=== PATIENT | female | born 1930 | race American Indian/Alaskan Native ===

== ENCOUNTER 2017-04-06 07:19 | Day surgery (SDC) | payer MEDICARE ==
[~2017-04-06 07:19] MED LIST: ANCEF/STERILE WATER 2 GM/20 ML 2 GM/20 ML SYRINGE IV NR; NACL 0.9% 1000 ML 1,000 ML IV SCH
[2017-04-06] MEDS ORDERED: NACL BACTERIOSTATIC INFILTRATI ONE (07:57)
[2017-04-06] MEDS ORDERED: MARCAINE 0.5% INFILTRATI ONE ×2 (08:11→09:51)
[2017-04-06] MEDS ORDERED: PROTAMINE SULFATE ONE (08:12)
[2017-04-06] MEDS ORDERED: RIFADIN ONE (08:12)
[2017-04-06] MEDS ORDERED: HEPARIN 10,000 UNITS/10 ML ONE (08:12)
[2017-04-06] MEDS ORDERED: NACL 0.9% 500 ML 500 ML ONE (08:12)
[2017-04-06] MEDS ORDERED: SUBLIMAZE ONE (08:17)
[2017-04-06] MEDS ORDERED: DIPRIVAN 10 MG/ML IV ONE (08:18)
[2017-04-06 08:24] LABS: Hematocrit 40.8 % (30.3-42.9); Hemoglobin 13.5 gm/dl (10.1-14.3); Mean Corpuscular HGB Conc 33 % (30-34); Mean Corpuscular Hemoglobin 29 pg (28-32); Mean Corpuscular Volume 89 fl (79-97); Platelet Count 224 K/mm3 (140-440); Red Cell Distribution Width 18.4 % (13.2-15.2); White Blood Count 7.1 K/mm3 (4.5-11.0)
[2017-04-06] MEDS ORDERED: XYLOCAINE MPF 2% ONE (08:24)
[2017-04-06] MEDS ORDERED: ROBINUL ONE (08:24)
[2017-04-06] MEDS ORDERED: PEPCID PO NR (08:27)
--- NOTE | 2017-04-06 08:31 | Anesthesia Consultation ---
Anesthesia Consult and Med Hx - Airway Anesthetic Teeth Evaluation: Good ROM Head & Neck: Adequate Mental/Hyoid Distance: Adequate Mallampati Class: Class II Intubation Access Assessment: Probably Good - Pulmonary Exam CTA: Yes - Cardiac Exam Cardiac Exam: RRR - Pre-Operative Health Status ASA Pre-Surgery Classification: ASA3 Proposed Anesthetic Plan: General - Cardiovascular System Hx Hypertension: Yes (took al BP meds this am) - Central Nervous System Hx Neuromuscular Disorder: Yes (arthritis and gout) Hx Psychiatric Problems: No - Endocrine Hx Renal Disease: Yes Hx End Stage Renal Disease: Yes (sx for dialysis access) - Other Systems Hx Cancer: No - Additional Comments Anesthesia Medical History Comments: no previous anesthesia problems
--- NOTE | 2017-04-06 08:34 | Anesthesia Day of Surgery ---
Anesthesia Day of Surgery - Day of Surgery Patient Examined: Yes Patient H&P Reviewed: Yes Patient is NPO: Yes
[2017-04-06] MEDS ORDERED: PERCOCET 5/325 PO PRN (08:42)
[2017-04-06] MEDS ORDERED: ZOFRAN IV PRN (08:42)
[2017-04-06 08:43] LABS: Calcium 9.3 mg/dL (8.4-10.2); Chloride 92.1 mmol/L (98-107); Potassium 5.4 mmol/L (3.6-5.0)
[2017-04-06 09:02] LABS: INR 0.94 (0.87-1.13)
[2017-04-06 09:50] LABS: Blastocytes % (Manual) 0 %
[2017-04-06 09:51] LABS: Anisocytosis 1+; Diff Status Complete; Ovalocytes Few; Platelet Estimate Consistent w Auto; Polychromasia Few
[2017-04-06] MEDS ORDERED: NACL 0.9% IR ONE (09:51)
[2017-04-06] MEDS ORDERED: HEPARIN 10,000 UNITS/10 ML 2,000 UNIT in NACL 0.9% 500 ML 500 ML IR ONE (09:51)
[2017-04-06] MEDS ORDERED: RIFADIN 600 MG in NACL 0.9% 50 ML IR ONE (09:53)
[2017-04-06] MEDS ORDERED: DECADRON ONE (10:00)
[2017-04-06] MEDS ORDERED: ZOFRAN ONE (10:01)
[2017-04-06] MEDS ORDERED: NEO SYNEPHRINE ONE (10:01)
[2017-04-06] MEDS ORDERED: NACL 0.9% 100 ML ONE (10:01)
--- NOTE | 2017-04-06 11:09 | Short Stay Summary ---
Short Stay Documentation Date of service: 04/06/17 Narrative H&P: See H&P - History H&P: obtained from office - Allergies and Medications Current Medications: Allergies No Known Allergies Allergy (Verified 04/06/17 08:49) Home Medications Medication Instructions Recorded Confirmed Last Taken Type Aspirin [Lo-Dose Aspirin EC] 81 mg PO DAILY 03/30/17 03/30/17 04/06/17 06:30 History Calcium Carbonate/Vitamin D3 1 each PO DAILY 03/30/17 03/30/17 04/06/17 06:30 History [Os-Bryan 500+D3 Caplet] Colchicine [Colcrys] 0.6 mg PO DAILY 03/30/17 04/06/17 04/05/17 History Furosemide [Lasix] 80 mg PO DAILY 03/30/17 04/06/17 04/05/17 History Hydralazine HCl 50 mg PO TID 03/30/17 03/30/17 04/06/17 06:30 History Multivitamin [Multiple Vitamins] 1 each PO DAILY 03/30/17 03/30/17 04/06/17 06: 30 History NIFEdipine [Afeditab Cr] 60 mg PO DAILY 03/30/17 03/30/17 04/06/17 06:30 History Om3/Dha/Epa/Cod Liver Oil/A/D3 1 each PO DAILY 03/30/17 03/30/17 04/06/17 06:30 History [Cod Liver Oil Softgel] Omeprazole 40 mg PO DAILY 03/30/17 03/30/17 04/06/17 06:30 History Sodium Bicarbonate 650 mg PO DAILY 03/30/17 03/30/17 04/06/17 06:30 History cloNIDine [Catapres] 0.2 mg PO DAILY 03/30/17 03/30/17 04/06/17 06:30 History Active Medications Famotidine (Pepcid) 20 mg PO PREOP NR Stop: 04/06/17 12:00 Last Admin: 04/06/17 08:52 Dose: 20 mg Hydromorphone HCl (Dilaudid) 0.25 mg IV Q10MIN PRN PRN Reason: Pain, Moderate (4-6) Stop: 04/06/17 18:00 Cefazolin Sodium (Ancef/Sterile Water 2 Gm/20 Ml) 2 gm in 20 mls @ 80 mls/hr IV PREOP NR PRN Reason: Protocol Stop: 04/06/17 23:59 Sodium Chloride (Nacl 0.9% 1000 Ml) 1,000 mls @ 42 mls/hr IV DIRECT CARMEN Last Admin: 04/06/17 08:05 Dose: 42 mls/hr Ondansetron HCl (Zofran) 4 mg IV ONCE PRN PRN Reason: Nausea And Vomiting Stop: 04/06/17 18:00 Oxycodone/Acetaminophen (Percocet 5/325) 1 tab PO ONCE PRN PRN Reason: Pain, Moderate (4-6) Stop: 04/06/17 18:00 - Brief post op/procedure progress note Date of procedure: 04/06/17 Pre-op diagnosis: ESRD Post-op diagnosis: same Procedure: Creation of Left Arm Axillary Artery to Axillary Vein AV Loop Graft with 4-7 Propaten Step Graft Anesthesia: GETA Surgeon: FRANCISCO POSADA Estimated blood loss: minimal Pathology: none Condition: stable - Disposition Condition at discharge: Good Disposition: DC-01 TO HOME OR SELFCARE Short Stay Discharge Plan Activity: other (the heavy lifting with left arm) Wound: open to air, other (okay to wash the wound with soap and water but do not soak in water) Follow up with: FRANCISCO PSOADA MD [Staff Physician] - 14 Days Prescriptions: HYDROcodone/APAP 7.5-325 [[place] 7.5/325] 1 each PO Q6HR PRN #40 tablet PRN Reason: Pain
--- NOTE | 2017-04-06 11:12 | Operative Report ---
Operative Report Operative Report: Date of Procedure: 04/06/2017 Pre-operative Diagnosis: End-Stage Renal Disease Post-operative Diagnosis: Same Procedure(s): 1. The Left Axillary Artery to Axillary Vein Arteriovenous Loop Graft with 4-7 Propaten Step Graft Surgeon: Duy Casillas M.D. Transit Specialist: None Anesthesia: Gen. endotracheal anesthesia EBL: Minimal Counts: Correct Complications: None Condition: Stable Findings: Successful creation of left arm AV graft with excellent thrill within the case. Specimen: None Indication: The patient is an 86-year-old female with a history of end-stage renal disease currently on hemodialysis through a right internal jugular permacath. She is in need of long-term access and was offered a left arm AV graft. She was given the risks, benefits, and alternative procedures and consented to procedure. Description of Procedure: The patient was brought to the operating room and laid in supine position. After general endotracheal anesthesia was achieved the left arm was prepped and draped in normal sterile fashion. A longitudinal incision was graded on the medial aspect of the arm and carried down to the axillary vein using sharp dissection. This was dissected out circumferentially and then my attention was turned to the axillary artery. The axillary artery was dissected circumferentially and controlled with 2 vessel loops. I then use a Sangita-Wick tunneler to create a tunnel and pulled the 4-7 Propaten Step Graft through the tunnel with the 4 mm portion of the graft on the medial aspect of the arm and the 7 mm portion anterolateral. A counterincision was created in the mid arm to assist with pulling the graft through the tunnel. I then put the vessel loops on tension to control flow in the axillary artery and created an arteriotomy using 11 blade and Adams scissors. I then created an end-to-side anastomosis using a 6-0 Prolene in running fashion. After completing the anastomosis and released the vessel loops allow flow into the graft which had excellent flow and then I reclamped the graft near the arterial anastomosis. I then cut the venous portion of the graft to length and beveled and then controlled the axillary vein with a Satinsky clamp. I created a anatomy using 11 blade Adams scissors and the greater end-to-side anastomosis using a 6-0 Prolene in running fashion. Prior to completing the anastomosis as well as the vein as well as the arterial inflow of the graft and then reclamped the graft vein and flushed venotomy with heparinized saline. I then completed the anastomosis and removed all clamps allow flow into the graft was an excellent thrill. Hemostasis was achieved with a combination of clot and direct pressure. Once hemostasis was achieved both issues were anesthetized with Marcaine and then closed in 2 layers using a 3-0 Vicryl in a running fashion the deep dermal layer and a 4-0 Monocryl in running fashion subcuticular and then dressed with Surgicel. The patient tolerated the procedure well. All sponge, needle, and instrument counts were correct. The patient was taken to recovery in stable condition.
[2017-04-06] MEDS ORDERED: LOPRESSOR IV ONE ×2 (11:39→11:49)
--- NOTE | 2017-04-06 12:15 | Post Anesthesia Evaluation ---
- Post Anesthesia Evaluation Patient Participated: Yes Airway Patent: Yes Stable Respiratory Function: Yes Nausea/Vomiting: No Temp > 96.8F: Yes Pain Manageable: Yes Adequeate Hydration: Yes Anesthesia Complications: No Block Receding Appropriately: Not Applicable Patient on Ventilator: No
[2017-04-06] MEDS ORDERED: APRESOLINE ONE (12:16)
[2017-04-06] MEDS: DILAUDID IV PRN ×3 (12:16→12:36)
[2017-04-06] MEDS ORDERED: APRESOLINE IV NR (12:23)
[2017-04-06] MEDS ORDERED: APRESOLINE IV ONE (13:00)
[2017-04-06 14:59] VITALS: BP 189/69
== END 2017-04-06 13:56 | disposition home or self-care (01) ==
LOC: OR 07:19
PROVIDERS: ATTEND Surgery Vascular Surgery
DX: I12.0 Hypertensive chronic kidney disease with stage 5 chronic kidney disease or end stage renal disease (principal); N18.6 End stage renal disease; M10.9 Gout, unspecified; M19.90 Unspecified osteoarthritis, unspecified site; K21.9 Gastro-esophageal reflux disease without esophagitis; Z79.82 Long term (current) use of aspirin; Z79.899 Other long term (current) drug therapy
CPT/HCPCS: 36415; 36830; 80048; 85007; 85025; 85610; C1768; J0360; J0690; J1100; J1170; J1644; J2370; J2405; J2704; J3010; J3490; J7030; J7040; J2720

== ENCOUNTER 2017-05-14 06:28 | Day surgery (SDC) | payer MEDICARE ==
[~2017-05-14 06:28] MED LIST changes: -NACL 0.9% 1000 ML 1,000 ML IV SCH
[2017-05-14] MEDS ORDERED: HEPARIN/NS 5000 UNIT/500ML(CATH LAB) 1,000 ML IR ONE (08:36)
[2017-05-14] MEDS ORDERED: NACL 0.9% 500 ML 500 ML ONE (08:37)
[2017-05-14] MEDS ORDERED: ANCEF/STERILE WATER 2 GM/20 ML 2 GM/20 ML SYRINGE IV ONE (08:37)
[2017-05-14] MEDS: VERSED ONE ×3 (08:59→09:47)
[2017-05-14] MEDS: SUBLIMAZE ONE ×2 (08:59→09:38)
[2017-05-14] MEDS: XYLOCAINE 2% INFILTRATI ONE ×2 (09:00→09:04)
[2017-05-14] MEDS: HEPARIN 10,000 UNITS/10 ML ONE ×2 (09:11→09:30)
[2017-05-14] MEDS ORDERED: NITROGLYCERIN SYRINGE 3 ML ONE (09:45)
--- NOTE | 2017-05-14 10:20 | Short Stay Summary ---
Short Stay Documentation Date of service: 05/14/17 Narrative H&P: See H&P - History H&P: obtained from office - Allergies and Medications Current Medications: Allergies No Known Allergies Allergy (Verified 04/06/17 08:49) Home Medications Medication Instructions Recorded Confirmed Last Taken Type Aspirin [Lo-Dose Aspirin EC] 81 mg PO DAILY 03/30/17 05/14/17 05/14/17 History Calcium Carbonate/Vitamin D3 1 each PO DAILY 03/30/17 05/14/17 05/14/17 History [Os-Bryan 500-Vit D3 600 Caplet] Colchicine [Colcrys] 0.6 mg PO DAILY 03/30/17 05/14/17 05/14/17 History Furosemide [Lasix] 80 mg PO DAILY 03/30/17 05/14/17 05/14/17 History Hydralazine HCl 50 mg PO TID 03/30/17 05/14/17 05/14/17 History Multivitamin [Multiple Vitamins] 1 each PO DAILY 03/30/17 05/14/17 05/14/17 History NIFEdipine [Afeditab Cr] 60 mg PO DAILY 03/30/17 05/14/17 05/14/17 History Om3/Dha/Epa/Cod Liver Oil/A/D3 1 each PO DAILY 03/30/17 05/14/17 05/14/17 History [Cod Liver Oil Softgel] Omeprazole 40 mg PO DAILY 03/30/17 05/14/17 05/14/17 History Sodium Bicarbonate 650 mg PO DAILY 03/30/17 05/14/17 05/14/17 History cloNIDine [Catapres] 0.2 mg PO DAILY 03/30/17 05/14/17 05/14/17 History HYDROcodone/APAP 7.5-325 [[place] 1 each PO Q6HR PRN #40 tablet 04/06/17 05/14/17 05/14/17 Rx 7.5/325] Active Medications Cefazolin Sodium (Ancef/Sterile Water 2 Gm/20 Ml) 2 gm in 20 mls @ 80 mls/hr IV PREOP NR PRN Reason: Protocol Stop: 05/14/17 23:59 Last Admin: 05/14/17 08:56 Dose: 20 mls - Brief post op/procedure progress note Date of procedure: 05/14/17 Pre-op diagnosis: Complications of Dialysis Access Post-op diagnosis: same Procedure: 1. Ultrasound-Guided Access Right Common Femoral Artery 2. Diagnostic Left Upper Extremity Arteriogram (Patient with a Clinical Change) 3. Angioplasty of Left Axillary Artery with 5 x 100 Lutonix Drug-Coated Balloon 4. Closure of Right Femoral Arteriotomy with ProGlide Closure Device 5. Radiologic Supervision with Interpretation Anesthesia: local, other (IV sedation) Surgeon: FRANCISCO POSADA Estimated blood loss: minimal Pathology: none Condition: stable - Disposition Condition at discharge: Good Disposition: DC-01 TO HOME OR SELFCARE Short Stay Discharge Plan Activity: other (no strenuous activity for 24 hours) Diet: renal Wound: remove dressing (24 hours) Follow up with: FRANCISCO POSADA MD [Staff Physician] - 14 Days Prescriptions: Clopidogrel [Plavix] 75 mg PO QDAY #90 tablet
[2017-05-14] MEDS ORDERED: PLAVIX PO ONE (10:24)
[2017-05-14 10:38] VITALS: BP 130/50
--- NOTE | 2017-05-14 10:41 | Operative Report ---
Operative Report Operative Report: Date of Procedure: 05/14/2017 Pre-operative Diagnosis: Complications of Dialysis Access Post-operative Diagnosis: Same Procedure(s): 1. Ultrasound-Guided Access Right Common Femoral Artery 2. Diagnostic Left Upper Extremity Arteriogram (Patient with a Clinical Change) 3. Angioplasty of Left Axillary Artery with 5 x 100 Lutonix Drug-Coated Balloon 4. Closure of Right Femoral Arteriotomy with ProGlide Closure Device 5. Radiologic Supervision with Interpretation Surgeon: Duy Casillas M.D. Link Cutter: None Anesthesia: Local and IV Sedation EBL: Minimal Counts: Correct Complications: None Condition: Stable Specimen: None Indication: The patient is an 86-year-old female with a history of end-stage renal disease currently on hemodialysis through a right internal jugular permacath. She had creation of a left axillary axillary loop graft and has had complaints of left hand weakness. She had previous angioplasty of an axillary lesion proximal to the graft with some improvement of her symptoms. She presented with worsening of her symptoms. She is in need of a diagnostic arteriogram with possible intervention. She was given the risks, benefits, and alternative procedures and consented to the procedure. Angiographic Findings: The diagnostic left upper extremity arteriogram demonstrated the left subclavian artery was widely patent. The axillary artery proximal to the anastomosis widely patent. The axillary artery at the level of the anastomosis appeared to be approximately 80-90% stenosis however there was significant difficulty crossing the anastomosis with a 0.035 wire suggesting that the stenosis may have been significantly more narrow than this. The remainder of the axillary artery as well as the brachial artery was widely patent. The patient's radial and ulnar artery were both widely patent without any significant flow-limiting stenosis. The patient's palmar arch appeared to be intact with patent digital arteries. After intervention there was significant spasm in the axillary artery however after nitroglycerin injection there did not appear to be any significant residual stenosis in the axillary artery. Description of Procedure: The patient was brought to the clinical lab clerk and laid in supine position. After she was adequately sedated her right groin was prepped and draped in normal sterile fashion. Ultrasound was used to identify the right common femoral artery and confirmed patency of the vessel. Once patency was confirmed the overlying skin and soft tissue was anesthetized with lidocaine. A small stab incision was created and then under ultrasound guidance a hemostat was used to bluntly dissect down to the anterior surface of the common femoral artery. Micropuncture technique was used with ultrasound guidance to enter the right common femoral artery and a 0.018 wire was advanced to the artery. The micropuncture sheath was placed by Seldinger technique a 0.035 [place] Advantage wire was advanced into the aorta under fluoroscopy. The micropuncture sheath was exchanged for a 5 [place] sheath by Seldinger technique. A 4 [place] catheter was advanced into the thoracic aorta and a aortogram was performed to identify the anatomy. A 5 [place] 2 was then used to select the left subclavian artery and the catheter was advanced to the subclavian. A left upper extremity arteriogram was then performed with the previously described findings. The 0.035 [place] Advantage Wire and 4 [place] catheter was advanced to the level of the stenosis and then the 5 [place] sheath was exchanged for a 6 [place] 65 cm destination sheath by Seldinger technique. At this point stem of the heparinized with 5000 units of heparin IV. Multiple attempts were made to traverse the lesion with the [place] Catheter and Advantage Wire without success. I was eventually able to cross the area of stenosis using a 0.018 V18 wire and 4 [place] catheter. I then performed along the at the lesion using a 5 x 100 Lutonix Drug-Coated Balloon. After performing an angioplasty performed a follow-up arteriogram demonstrated severe spasm of the area of angioplasty. I advanced the narrow cross back to the area of angioplasty and injected 600 g of nitroglycerin to break the spasm. The follow-up arteriogram demonstrated a patent artery without any significant residual stenosis. I then removed the catheters and wires and pulled the sheath back into the abdominal aorta and advanced a 0.025 J wire into the aorta. I used the ProGlide Closure Device to close the right femoral arteriotomy. The patient tolerated procedure well. All sponge, needle, and instrument counts were correct. The patient was taken to the recovery area in stable condition.
== END 2017-05-14 12:30 | disposition home or self-care (01) ==
LOC: CATHLABREC 06:28
PROVIDERS: ATTEND Surgery Vascular Surgery
DX: I77.1 Stricture of artery (principal); I12.0 Hypertensive chronic kidney disease with stage 5 chronic kidney disease or end stage renal disease; N18.6 End stage renal disease; Z79.82 Long term (current) use of aspirin; Z79.899 Other long term (current) drug therapy; Z99.2 Dependence on renal dialysis; Z90.49 Acquired absence of other specified parts of digestive tract; Z90.710 Acquired absence of both cervix and uterus; Z98.890 Other specified postprocedural states
CPT/HCPCS: 36415; 37246; 75710; 84132; 99156; 99157; C1760; C1769; C1887; C2623; J0690; J1644; J2250; J3010; J7040; Q9967

== ENCOUNTER 2017-06-29 07:16 | Day surgery (SDC) | payer MEDICARE ==
[~2017-06-29 07:16] MED LIST changes: +NACL 0.9% 1000 ML 1,000 ML IV SCH
[2017-06-29] MEDS ORDERED: MARCAINE 0.5% INFILTRATI ONE ×5 (07:23→16:30)
[2017-06-29] MEDS ORDERED: HEPARIN 10,000 UNITS/10 ML ONE ×2 (07:23→10:30)
[2017-06-29] MEDS ORDERED: NACL 0.9% 250ML 250 ML ONE ×2 (07:23→12:04)
--- NOTE | 2017-06-29 09:14 | Anesthesia Day of Surgery ---
Anesthesia Day of Surgery - Day of Surgery Patient Examined: Yes Patient H&P Reviewed: Yes Patient is NPO: Yes
--- NOTE | 2017-06-29 09:14 | Anesthesia Consultation ---
Anesthesia Consult and Med Hx Date of service: 06/29/17 - Airway Anesthetic Teeth Evaluation: Good ROM Head & Neck: Adequate Mental/Hyoid Distance: Adequate Mallampati Class: Class II Intubation Access Assessment: Good - Pulmonary Exam CTA: Yes - Cardiac Exam Cardiac Exam: RRR - Pre-Operative Health Status ASA Pre-Surgery Classification: ASA4 Proposed Anesthetic Plan: General - Cardiovascular System Hx Hypertension: Yes - Central Nervous System Hx Neuromuscular Disorder: Yes (arthritis and gout) Hx Psychiatric Problems: No - Endocrine Hx Renal Disease: Yes Hx End Stage Renal Disease: Yes (on HD M/W/F. Last HD on 06/28) - Other Systems Hx Cancer: No - Additional Comments Anesthesia Medical History Comments: Informed consent obatined
[2017-06-29] MEDS ORDERED: SUBLIMAZE IV PRN (09:15)
[2017-06-29 09:25] LABS: Calcium 9.1 mg/dL (8.4-10.2)
[2017-06-29 09:44] LABS: INR 0.87 (0.87-1.13)
[2017-06-29 09:49] LABS: Basophils % (Auto) 0.5 % (0.0-1.8); Eosinophils # (Auto) 0.3 K/mm3 (0.0-0.4); Eosinophils % (Auto) 4.2 % (0.0-4.3); Hematocrit 34.5 % (30.3-42.9); Hemoglobin 11.3 gm/dl (10.1-14.3); Lymphocytes # (Auto) 2.4 K/mm3 (1.2-5.4); Lymphocytes % (Auto) 31.2 % (13.4-35.0); Mean Corpuscular HGB Conc 33 % (30-34); Mean Corpuscular Hemoglobin 30 pg (28-32); Mean Corpuscular Volume 91 fl (79-97); Monocytes # (Auto) 1.1 K/mm3 (0.0-0.8); Monocytes % (Auto) 14.4 % (0.0-7.3); Platelet Count 195 K/mm3 (140-440); Red Blood Count 3.78 M/mm3 (3.65-5.03); Red Cell Distribution Width 15.8 % (13.2-15.2)
[2017-06-29] MEDS ORDERED: PEPCID IV NR (10:00)
[2017-06-29] MEDS ORDERED: DIPRIVAN 10 MG/ML IV ONE (10:07)
[2017-06-29] MEDS ORDERED: ePHEDrine SULFATE ONE ×2 (10:43→12:00)
[2017-06-29] MEDS ORDERED: XYLOCAINE MPF 2% ONE (10:47)
[2017-06-29] MEDS ORDERED: NACL 0.9% IR ONE ×2 (11:04→11:20)
[2017-06-29] MEDS ORDERED: HEPARIN 10,000 UNITS/10 ML 1,000 UNIT in NACL 0.9% 250ML 250 ML IR ONE (11:05)
[2017-06-29] MEDS ORDERED: NEO SYNEPHRINE/NS Syringe(OR USE) IV ONE (11:13)
[2017-06-29] MEDS ORDERED: RIFADIN ONE (11:17)
[2017-06-29] MEDS ORDERED: SUBLIMAZE ONE (11:19)
[2017-06-29] MEDS ORDERED: RIFADIN 600 MG in NACL 0.9% 50 ML IR ONE (11:19)
[2017-06-29] MEDS ORDERED: OMNIPAQUE IR ONE (11:20)
[2017-06-29] MEDS ORDERED: THROMBIN SPRAYKIT (BOVINE) TP ONE (11:20)
[2017-06-29] MEDS ORDERED: GELFOAM TP ONE ×2 (11:20→13:06)
[2017-06-29] MEDS ORDERED: THROMBIN (BOVINE) TP ONE (13:06)
--- NOTE | 2017-06-29 13:41 | Short Stay Summary ---
Short Stay Documentation Date of service: 06/29/17 Narrative H&P: See H&P - History H&P: obtained from office - Allergies and Medications Current Medications: Allergies No Known Allergies Allergy (Verified 06/28/17 11:26) Home Medications Medication Instructions Recorded Confirmed Last Taken Type Aspirin [Lo-Dose Aspirin EC] 81 mg PO DAILY 03/30/17 06/29/17 06/29/17 History Calcium Carbonate/Vitamin D3 1 each PO DAILY 03/30/17 06/29/17 06/28/17 History [Os-Bryan 500-Vit D3 600 Caplet] Colchicine [Colcrys] 0.6 mg PO DAILY 03/30/17 06/28/17 05/14/17 History Furosemide [Lasix] 80 mg PO DAILY 03/30/17 06/29/17 06/28/17 History Hydralazine HCl 50 mg PO TID 03/30/17 06/29/17 06/29/17 History Multivitamin [Multiple Vitamins] 1 each PO DAILY 03/30/17 06/29/17 06/28/17 History NIFEdipine [Afeditab Cr] 60 mg PO DAILY 03/30/17 06/29/17 06/29/17 History Om3/Dha/Epa/Cod Liver Oil/A/D3 1 each PO DAILY 03/30/17 06/29/17 06/29/17 History [Cod Liver Oil Softgel] Omeprazole 40 mg PO DAILY 03/30/17 06/29/17 06/28/17 History Sodium Bicarbonate 650 mg PO DAILY 03/30/17 06/29/17 06/29/17 History cloNIDine [Catapres] 0.2 mg PO DAILY 03/30/17 06/29/17 06/29/17 History HYDROcodone/APAP 7.5-325 [[place] 1 each PO Q6HR PRN #40 tablet 04/06/17 06/28/17 05/14/17 Rx 7.5-325 mg TAB] Clopidogrel [Plavix] 75 mg PO QDAY #90 tablet 05/14/17 06/29/17 06/28/17 Rx Active Medications Cefazolin Sodium (Ancef/Sterile Water 2 Gm/20 Ml) 2 gm in 20 mls @ 80 mls/hr IV PREOP NR PRN Reason: Protocol Stop: 06/29/17 23:59 Sodium Chloride (Nacl 0.9% 1000 Ml) 1,000 mls @ 42 mls/hr IV DIRECT CARMEN Last Admin: 06/29/17 08:45 Dose: 42 mls/hr - Brief post op/procedure progress note Date of procedure: 06/29/17 Pre-op diagnosis: Complications of Dialysis Access Post-op diagnosis: same Procedure: 1. Left Axillary Artery to Brachial Artery Bypass with 4 mm Bovine Graft 2. Fistulogram with Central Venogram 3. Angioplasty and Stent of Left Axillary Vein with 8 x 10 cm Viabahn Stent Graft and 8 x 4 cm Conquest Balloon 4. Radiologic Supervision with Interpretation Anesthesia: DARSHANA Surgeon: FRANCISCO POSADA Estimated blood loss: other (250 ml) Pathology: none Condition: stable - Disposition Condition at discharge: Good Disposition: DC-01 TO HOME OR SELFCARE Short Stay Discharge Plan Activity: other (No heavy lifting with left arm ) Wound: open to air, keep clean and dry, other (ok to wash the wound with soap and water but do not soak in water) Follow up with: FRANCISCO POSADA MD [Staff Physician] - 14 Days Prescriptions: Gabapentin [Neurontin] 100 mg PO BID #60 capsule HYDROcodone/APAP 7.5-325 [[place] 7.5/325] 1 each PO Q6HR PRN #40 tablet PRN Reason: Pain
--- NOTE | 2017-06-29 14:14 | Post Anesthesia Evaluation ---
- Post Anesthesia Evaluation Patient Participated: Yes Airway Patent: Yes Stable Respiratory Function: Yes Nausea/Vomiting: No Temp > 96.8F: Yes Pain Manageable: Yes Adequeate Hydration: Yes Anesthesia Complications: No
[2017-06-29] MEDS ORDERED: ZOFRAN ONE (14:23)
--- NOTE | 2017-06-29 14:28 | Operative Report ---
Operative Report Operative Report: Date of Procedure: 06/29/2017 Pre-operative Diagnosis: Common of Dialysis Access Post-operative Diagnosis: Same Procedure(s): 1. Left Axillary Artery to Brachial Artery Bypass with 4 mm Bovine Graft 2. Fistulogram with Central Venogram 3. Angioplasty and Stent of Left Axillary Vein with 8 x 10 cm Viabahn Stent Graft and 8 x 4 cm Conquest Balloon 4. Radiologic Supervision with Interpretation Surgeon: Duy Casillas M.D. Supervisor Sleeping Bag Department: None Anesthesia: Gen. Endotracheal Anesthesia EBL: 300 mL Counts: Correct Complications: None Condition: Stable Findings: The patient had a palpable thrill as well as a palpable radial pulse at the completion of the case. No further extravasation or stenosis remaining in the left axillary vein at the completion of the case. Specimen: None Indication: The patient is a 87-year-old female with a history of end-stage renal disease who had creation of a left axillary axillary loop graft and developed steal syndrome. She is in need of revision for resolution of her symptoms. She was given the risks, benefits, and alternative procedures and consented to the procedure. Description of Procedure: The patient was brought to the operating room and laid in supine position. After general endotracheal anesthesia was achieved she was prepped and draped in a sterile fashion. A longitudinal incision was created in the arm on the medial aspect, through her previous incision just distal to the axillary crease. This was carried down to the axillary artery proximal to her anastomosis of the arteriovenous graft. The artery was dissected circumferentially and then controlled with a vessel loop. I then made a transverse incision just below the antecubital crease and carried this down to the brachial artery above the bifurcation. I dissected the artery circumferentially and controlled the artery with vessel loops. I then used a Sangita-Wick tunneler to tunnel from the brachial artery incision to the axillary artery incision and then pulled the 4 mm bovine graft retrograde through the tunnel. Upon pulling the graft of the tunnel I noted arterial bleeding in both incisions. I systemically heparinized the patient and then placed all vessels on tension and still noted venous bleeding which led me to believe that there was an injury to the vein. I eventually explored the axillary wound and found that the Sangita-Wick tunneler had gone through the axillary vein. I removed the bovine graft and then used a micropuncture technique to access the AV graft towards the venous outflow and placed a micropuncture sheath by Seldinger technique. I then advanced a 0.035 [place] wire into the AV graft and across the area of the injury and placed an 8 [place] sheath by Seldinger technique. I then advanced a vertebral catheter and used fluoroscopy to confirm that I was in the central venous system. I performed a fistulogram that demonstrated the area of extravasation as well as approximately 60% stenosis at the area of injury. I advanced an 8 x 10 cm Viabahn Stent Graft across the injury and deployed the stent graft. I postdilated the stent graft using an 8 x 4 cm Conquest Balloon. The final fistulogram demonstrated a widely patent stent graft without any further extravasation. I then removed the balloons and wires and using a 4-0 chromic in pursestring fashion to close the entry site upon removing the sheath. I then reinserted the Sangita-Jeny tunneler and pulled the 4 mm bovine back through the tunnel. I used angled DeBakey clamps to clamp the axillary artery and created an arteriotomy using an 11 blade and Adams scissors and created an end-to-side anastomosis between the bovine graft and axillary artery using 2 6-0 Prolenes in running fashion. After completing the anastomosis I released the clamps off flow into the graft which had adequate flow. I reclamped the graft just distal to the anastomosis and then packed the wound with quick clot to achieve hemostasis. I then cut the graft to length and beveled the distal and and then clamped the brachial artery using angled De[place]akey clamps. I created an arteriotomy using 11 blade and Pott scissors and then created an end-to-side anastomosis using 2 6-0 Prolenes in running fashion. Prior to completing the anastomosis I flushed the graft as well as the brachial artery and then completed the anastomosis. I released all clamps allow flow into the graft which had an excellent pulse in the graft as well as in the radial artery. Hemostasis of the wound was achieved with quick clot. Hemostasis in the axillary incision was achieved with a combination of FloSeal and thrombin-soaked Gelf[place]am. Once hemostasis was achieved both wounds were anesthetized with 0.5% Marcaine. The wounds were then closed in 2 layers using a 3-0 Vicryl running fashion the deep dermal layer and a 4 Monocryl in running fashion subcuticular and then dressed with Dermabond. The patient tolerated the procedure well. All sponge, needle, and instrument counts were correct. The patient was taken to the recovery area in stable condition.
[2017-06-29] MEDS ORDERED: NORCO 7.5/325 PO PRN (14:33)
[2017-06-29] MEDS ORDERED: DILAUDID IV SCH (16:00)
[2017-06-29 16:46] VITALS: BP 141/54
== END 2017-06-29 07:17 | disposition home or self-care (01) ==
LOC: OR 07:16
PROVIDERS: ATTEND Surgery Vascular Surgery
DX: T82.898A Other specified complication of vascular prosthetic devices, implants and grafts, initial encounter (principal); I12.0 Hypertensive chronic kidney disease with stage 5 chronic kidney disease or end stage renal disease; N18.6 End stage renal disease; M19.90 Unspecified osteoarthritis, unspecified site; M10.9 Gout, unspecified; Z79.82 Long term (current) use of aspirin; Z79.01 Long term (current) use of anticoagulants; Z79.899 Other long term (current) drug therapy; Y83.2 Surgical operation with anastomosis, bypass or graft as the cause of abnormal reaction of the patient, or of later complication, without mention of misadventure at the time of the procedure
CPT/HCPCS: 36415; 36903; 80048; 85025; 85610; A4649; C1725; C1768; C1769; C1874; C1894; J0690; J1170; J1644; J2370; J2405; J2704; J3010; J3246; J3490; J7030; J7050; Q9966